=== PATIENT | female | born 1995 | race Caucasian/White ===

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

== ENCOUNTER → 2017-10-22 | Outpatient (CLI) | payer OTHER ==
[~2017-10-22] MED LIST: WELLBUTRIN 100100 MG PO
== END ==
LOC: COL.VAS 10:54
DX: T81.72XA Complication of vein following a procedure, not elsewhere classified, initial encounter (principal); Z86.79 Personal history of other diseases of the circulatory system; Z98.890 Other specified postprocedural states